=== PATIENT | female | born 1985 | race Caucasian/White ===

== ENCOUNTER 2020-11-23 20:02 | Inpatient (IN) ==
[2020-11-23] MEDS ORDERED: LACTATED RINGER'S 1,000 ML IV PRN (20:08)
[2020-11-23] MEDS ORDERED: OXYTOCIN 30 UNITS/500 ML BAG IV PRN ×2 (20:08→22:12)
--- NOTE | 2020-11-23 20:12 | History & Physical Report ---
Date of Service November 23, 2020 Assessment & Plan (1) : Admission and Anticipated Discharge Date Admission Date: Admit to L&D. IV access. EFM/toco. Labs. Anticipate . Patient does not desire any interventions per her written plan. She refuses pitocin and active management of 3rd stage of labor. Unable to educate patient on this at this time, as she is very uncomfortable with contractions. History of Present Illness Chief Complaint: labor Primary Care Provider: NO PCP 35yo @ 40 4/7, SROM and labor at home. Very uncomfortable on arrival. complicated by: Patient's father with bicuspid valve - echo 22-24w - WNL, needs echo Rh Negative - Rhogam gven 08/28/20 SB IOL 12/04/20 Post Dates *Weekly NSTs 40 0/7 to 40 6/7 *MVP and NSTs twice wkly 410/7 to 41 6/7 Allergies Allergy/AdvReac Type Severity Reaction Status Date / Time povidone-iodine Allergy swelling, Verified 11/21/20 09:42 itching, difficulty with breathing Home Medications Medication Instructions Recorded Confirmed Type glucosamine HCl PO 08/09/19 11/21/20 History lysine 500 mg tablet 500 mg PO DAILY 08/09/19 11/21/20 History turmeric 400 mg capsule mg PO cap 08/09/19 11/21/20 History prenat.vits,graham,keb-[id number]-[id number] 1 tab PO DAILY 04/05/20 11/21/20 History ferrous sulfate PO 10/02/20 11/21/20 History Patient History Medical History Abnormal biochemical finding on screening of mother, antepartum Abnormal Pap smear of cervix Anemia resolved Concussion age 13 Encounter for anatomic survey HPV test positive Hx of varicella Surgical History [place] teeth removed Family History Father Hx of congenital cardiac septal defect Other Asthma Diabetes Multiple sclerosis Social History Smoking Status: Never smoker Hx Alcohol Use: No Hx Substance Use: No Preferred Language: Turkish Communication Ability: Effective Wax Specialist Required: No Beliefs That Will Affect Care: None marital status: marital status details: Tanner Mejia 37 Current Living Situation: Spouse Current Living Situation Comment: lives with spouse, 1 cat, does not change litter current occupational status: employed 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 FHT Cat 1 Colbert Q 2 Constitutional: WD/WN, vitals as above Respiratory: normal respiratory effort, lungs clear to auscultation no respiratory distress Cardiovascular: Rate/Rhythm: regular rate and regular rhythm Gastrointestinal (Abdomen): Inspection/Auscultation: abdomen normal to inspection Percussion/Palpation: abdomen soft; abdomen nontender Gravid. No s/s chorio or abruption. Skin: no rashes, warm and dry Psychiatric: A+Ox3, euthymic affect Results & Data ([facility]) Vital Signs (Past 12 Hours) Vital Signs Temp Pulse Resp BP 11/23/20 20:05 36.8 C 109 H 18 158/76 H Coding Level of Care Code None Diagnoses Z34.90
[2020-11-23 20:33] LABS: Hemoglobin 13.2 g/dL (12.0-16.0); Mean Corpuscular Hemoglobin 32.8 pg (25-34); Mean Corpuscular Hgb Conc 34.7 g/dL (32-36); Mean Corpuscular Volume 94.3 fL (80-100); Mean Platelet Volume 10.7 fL (7.4-10.4); Platelet Count 257 K/uL (130-400); RDW Coefficient of Variation 13.6 % (11.5-14.5); RDW Standard Deviation 46.8 fL (36.4-46.3); Red Blood Count 4.03 M/uL (4.2-5.4)
--- NOTE | 2020-11-23 22:09 | Delivery Summary ---
Vaginal Delivery Summary Date of Service November 23, 2020 Vaginal Delivery Summary and 1st Degree LAC Vaginal Delivery Summary: Pre-delivery diagnoses: 35yo , Rh negative Post-delivery diagnoses: same Procedure: spontaneous vaginal delivery Surgeon: Naima Valenzuela DO Complications: none Findings: Viable female . Apgars: 8/9. Weight pending, please see nursery records Estimated blood loss: 300ml Description of delivery: The patient progressed to complete without anesthesia. She then began to push. She spontaneously vaginally delivered a viable from the cephalic presentation. The head delivered in RORO position. The anterior shoulder delivered, followed by the posterior shoulder, followed by the body. The baby was placed on mother's abdomen and a spontaneous cry was heard. Delayed cord clamping was employed for at least 2 minutes, and the cord was doubly clamped and cut. Cord blood was obtained. The placenta was delivered spontaneously intact with a 3-vessel cord. The uterus and vagina were swept of clots and debris. IV pitocin was refused by patient. The uterus became firm. The cervix, vagina, and perineum were inspected and a first degree perineal laceration was noted. Excellent hemostasis was observed. The mother and baby are recovering in stable and good condition in the room. Sponge and instrument counts were correct x 2. Naima Valenzuela DO [facility] Vaginal Delivery Charge Vaginal Delivery Codes: 16353 global code for the antepartum, delivery, and post- Delivery Type Details: and 1st Degree LAC
[2020-11-23] MEDS ORDERED: bisacodyL 10 MG SUPP PR PRN (22:12)
[2020-11-23] MEDS ORDERED: DIPHTHERIA/TETANUS/PERTUSSIS 0.5 ML SYR/VIAL IM ONE (22:12)
[2020-11-23] MEDS ORDERED: ACETAMINOPHEN 325 MG TAB PO PRN (22:12)
[2020-11-23] MEDS ORDERED: SUPERCREAM 0.870% 15 GM JAR EXT PRN (22:12)
[2020-11-23] MEDS ORDERED: BENZOCAINE 20% AER SPR 82.5 GM CAN EXT PRN (22:12)
[2020-11-23] MEDS ORDERED: HYDROCORTISONE ACETATE 25 MG SUPP PR PRN (22:12)
--- NOTE | 2020-11-24 05:29 | Obstetrical Progress Note ---
Date of Service <Maurizio Flood MD - Last Filed: 11/24/20 07:00> November 24, 2020 Assessment & Plan <Maurizio Flood MD - Last Filed: 11/24/20 07:00> (1) state: 35 y/o who is s/p [id number] and is PPD1. A neg. Ab screen neg. Rubella immune. GBS neg. - meeting milestones. ambulating, eating, voiding without problems. - discomfort during urination likely 2/2 1st degree perineal tear - H/H reviewed. appropriate. - pain controlled - - Rh neg. BBK ordered - tentative dispo this evening. discharge instructions reviewed. - 6 wk f/u Subjective <Maurizio Flood MD - Last Filed: 11/24/20 07:00> Ambulation: ambulating normally Voiding: no voiding problems Passing Gas:: Yes Diet Tolerance:: regular diet Lochia:: Moderate (improving) Feeding Type:: breast feeding (no issues.) Current Pain Level(1-10): 1 (iv site somewhat bothering her.) prefers home today after baby 24 hours Review of Systems Denies fever, chills, sweats Denies shortness of breath, chest pain, palpitations. mild nipple pain. some stinging when urinating, attributes to 1st degree tear Denies headache or changes in vision. Denies nausea/vomiting. Denies numbness, tingling, weakness. mood good no calf pain Physical Exam <Maurizio Flood MD - Last Filed: 11/24/20 07:00> General: Alert, oriented. No acute distress. Cardiac: Regular rate and rhythm, no murmurs/rubs/gallops. Respiratory: Clear to auscultation bilaterally, no wheezes/rales/rhonchi. No respiratory distress. Abdomen: , soft, nontender. Uterus: Uterine fundus firm, palpable 2cm below umbilicus. Lower Extremities: No lower extremity edema or swelling. No deep calf pain. Iwona's negative bilaterally. Results & Data ([facility]) <Maurizio Flood MD - Last Filed: 11/24/20 07:00> Vital Signs (Past 12 Hours) Vital Signs Temp Pulse Pulse Resp BP BP Pulse Ox 11/24/20 04:45 36.5 C 79 17 134/80 98 11/24/20 00:30 36.6 C 80 16 110/68 98 11/23/20 23:52 96 H 18 127/74 11/23/20 23:37 82 130/69 11/23/20 23:29 91 H 18 139/69 11/23/20 22:52 80 18 134/76 11/23/20 22:37 82 126/70 11/23/20 22:22 86 18 122/72 11/23/20 22:07 100 H 18 128/92 11/23/20 21:52 18 128/87 11/23/20 20:10 36.8 C 109 H 18 158/76 H 11/23/20 20:05 36.8 C 109 H 18 158/76 H Medications Administered <Naima Valenzuela DO - Last Filed: 11/24/20 07:49> Co-Signing Physician Notes Resident Physician Supervision Note: I was present with Dr. Flood during the history and exam. I discussed the case with the resident and agree with the findings and plan as documented in the note. Any exceptions or clarifications are listed here: PPD#1 doing well, no concerns. Is wanting to go home today - this evening, at 24h after . Reviewed discharge instructions. Documented By: Naima Valenzuela DO
[2020-11-24 06:09] LABS: Hematocrit (blood only) 34.5 % (37-47)
[2020-11-24] MEDS ORDERED: FERROUS SULFATE 325 MG TAB PO ONE (07:31)
[2020-11-24] MEDS: PRENATAL VITAMIN 1 TAB PO SCH (07:59)
[2020-11-24] MEDS: DOCUSATE SODIUM 100 MG CAP PO SCH ×2 (10:00→19:06)
[2020-11-24] MEDS: IBUPROFEN 600 MG TAB PO PRN (13:30)
[2020-11-24] MEDS ORDERED: bisacodyL 5 MG TABEC PO SCH (20:00)
[2020-11-25] MEDS: IBUPROFEN 600 MG TAB PO PRN (02:23)
--- NOTE | 2020-11-25 07:15 | Obstetrical Progress Note ---
Date of Service November 25, 2020 Assessment & Plan (1) state: day #2 patient meets discharge criteria wishes to go home instructions reviewed Subjective Ambulation: ambulating normally Voiding: no voiding problems Passing Gas:: Yes Diet Tolerance:: regular diet Lochia:: Small Feeding Type:: breast feeding Current Pain Level(1-10): 1 Physical Exam ext neg Results & Data ([facility]) Vital Signs (Past 12 Hours) Vital Signs Temp Pulse Resp BP Pulse Ox 11/25/20 00:15 97.7 F 71 16 125/81 98 11/24/20 19:30 97.9 F 82 16 116/74 99
[2020-11-25] MEDS: PRENATAL VITAMIN 1 TAB PO SCH (08:06)
[2020-11-25] MEDS: DOCUSATE SODIUM 100 MG CAP PO SCH (08:06)
== END 2020-11-25 09:49 | disposition home or self-care (01) | DRG 807 ==
LOC: OPB 20:02 → 4S1 20:02 → 4S2 11-24 00:34